=== PATIENT | female | born 1985 | race Caucasian/White ===

== ENCOUNTER 2016-08-19 07:44 | Inpatient (IN) | payer BC ==
--- NOTE | 2016-08-19 08:16 | OBHP ---
Datetime: 08/19/2016 08:12 IP Adm Impression: Postterm, intrauterine ; No Active Labor; Intact Membranes IP Admit Plan: Admit to unit; Initiate labor induction protocol Admit Comment, IP Provider: at 40.3weeks vcame with dec fm and irrg ctxs, no vb, lof. obhx primi pmh denies med pnv all nkda psh denies soch den ve closed/20/3 a/p at 40+weks dec fm for induction post date cadmit to l_d npo/ivf labs cont vianey and efm pain management poss cervidil Dr Escobedo aware Pelvic Type - PN: Adequate Extremities - PN: Normal Abdomen - PN: Normal Back - PN: Normal Breast - PN: Normal Lungs - PN: Normal Heart - PN: Normal Thyroid - PN: Normal Neurologic - PN: Normal HEENT - PN: Normal General - PN: Normal FHR - Baseline A Provider: 120 Contraction Comments Provider: occ Comments, ACOG Physical Exam: gravid,non tender ext no edema,no calf ten IP Hx Assessment: The History has been Reviewed and is Current EGA AdmitDate IP: 40.3 Vital Signs Provider: Reviewed; Within Normal Limits IP Chief Complaint: Decreased movement NICHD Variability Prov Fetus A: Moderate 6-25bpm NICHD Accel Fetus A IP Provider: 15X15 FHR Category Provider Fetus A: Category I Dilatation, Provider: 0 Effacement, Provider: 20 Station, Provider: -3 Genitourinary Exam: Normal DTRs - PN: Normal
[2016-08-19 08:19] VITALS: BMI 21.9
[2016-08-19] MEDS ORDERED: Nalbuphine 20 mg/ml Inj (1 ml) IVP PRN (08:30)
--- NOTE | 2016-08-19 08:46 | OBADHP ---
Datetime: 08/19/2016 08:12 Admit Comment, IP Provider: at 40.3weeks vcame with dec fm and irrg ctxs, no vb, lof. obhx primi pmh denies med pnv all nkda psh denies soch den ve closed/20/-3 a/p at 40+weks dec fm for induction post date cadmit to l_d npo/ivf labs cont vianey and efm pain management poss cervidil Dr Escobedo aware Pelvic Type - PN: Adequate Extremities - PN: Normal Abdomen - PN: Normal Back - PN: Normal Breast - PN: Not Done Lungs - PN: Normal Heart - PN: Normal Thyroid - PN: Not Done Neurologic - PN: Not Done HEENT - PN: Not Done General - PN: Normal FHR - Baseline A Provider: 120 Membranes, Provider: Intact Contraction Comments Provider: occ Comments, ACOG Physical Exam: gravid,non tender ext no edema,no calf ten IP Hx Assessment: The History has been Reviewed and is Current Vital Signs Provider: Reviewed; Within Normal Limits IP Chief Complaint: Decreased movement NICHD Variability Prov Fetus A: Moderate 6-25bpm NICHD Accel Fetus A IP Provider: 15X15 FHR Category Provider Fetus A: Category I Dilatation, Provider: 0 Effacement, Provider: 20 Station, Provider: -3 Genitourinary Exam: Normal DTRs - PN: Normal EGA AdmitDate IP: 40.3 IP Adm Impression: Postterm, intrauterine ; No Active Labor; Intact Membranes IP Admit Plan: Admit to unit; Initiate labor induction protocol
[2016-08-19 09:09] LABS: BASO # 0.1 K/uL (0.0-0.2); BASO % 0.6 % (0.0-2.0); EOS # 0.1 K/uL (0.0-0.7); EOS % 1.4 % (0.0-4.0); HEMATOCRIT 31.9 % (34.0-47.0); LYMPH # 2.8 K/uL (1.0-4.3); LYMPH % 30.8 % (20.0-40.0); MEAN CELL VOLUME 75.4 fL (81.0-99.0); MEAN CORPUSCULAR HEMOGLOBIN 24.3 pg (27.0-31.0); MEAN CORPUSCULAR HGB CONC 32.2 g/dL (33.0-37.0); MEAN PLATELET VOLUME 10.4 fL (7.2-11.7); MONO # 0.5 K/uL (0.0-0.8); MONO % 5.4 % (0.0-10.0); NRBC % 0.1 % (0.0-2.0); RED CELL DISTRIBUTION WIDTH 17.1 % (11.5-14.5); WHITE BLOOD COUNT 9.1 K/uL (4.8-10.8)
[2016-08-19 09:12] LABS: RBC URINE 2 /hpf (0-3); URINE BACTERIA OCC (<OCC); URINE BILIRUBIN NEGATIVE (NEGATIVE); URINE BLOOD NEGATIVE (NEGATIVE); URINE COLOR Amber (YELLOW); URINE GLUCOSE (UA) NORMAL (Normal); URINE KETONE NEGATIVE (NEGATIVE); URINE LEUKOCYTE ESTERASE 1+ Leu/uL (Negative); URINE PROTEIN 1+ mg/dL (NEGATIVE); URINE UROBILINOGEN NORMAL mg/dL (0.2-1.0); WBC URINE 11 /hpf (0-5)
[2016-08-19 09:21] LABS: CHLORIDE 101 mmol/L (98-107); SODIUM 136 mmol/L (132-148)
[2016-08-19 09:22] LABS: POTASSIUM 3.7 mmol/L (3.6-5.2)
[2016-08-19 09:24] LABS: ALKALINE PHOSPHATASE 177 U/L (38-126); ALT/SGPT 25 U/L (9-52); AST/SGOT 28 U/L (14-36); BILIRUBIN,TOTAL 0.4 mg/dL (0.2-1.3); BLOOD UREA NITROGEN 10 mg/dL (7-17); CARBON DIOXIDE 19 mmol/L (22-30); GFR AFRICAN-AMERICAN > 60; GLUCOSE,RANDOM 74 mg/dL (65-105)
[2016-08-19 09:25] LABS: CALCIUM 8.6 mg/dl (8.6-10.4)
[2016-08-19] MEDS ORDERED: Sodium Citrate/Citric Acid 15 ml Sol ONE (11:42)
[2016-08-19] MEDS ORDERED: Sodium Citrate/Citric Acid 15 ml Sol PO STA (11:51)
[2016-08-19] MEDS ORDERED: Nalbuphine 20 mg/ml Inj (1 ml) ONE (15:05)
[2016-08-19] MEDS ORDERED: Oxytocin 30 UNIT 500 ML IV ONE (18:04)
[2016-08-19] MEDS ORDERED: Oxytocin 30 UNIT 500 ML IV SCH (18:15)
[2016-08-19] MEDS ORDERED: Bupivacaine 0.125%/FentaNYL 200 ML EPI ONE (19:41)
--- NOTE | 2016-08-19 21:05 | OBPN ---
Datetime: 08/19/2016 21:00 IP Progress Impression: Normal progression of labor; Reassuring heart rate IP Informed Consent Obtain: Vaginal Delivery; Risks, Benefits and Alternatives Discussed IP Procedures: Sterile Vag Exam IP Progress Plan: Continue present management; Cervical Ripening; Anesthesia consult; Anticipate Vag inal Delivery Membranes, Provider: Intact FHR - Baseline A Provider: 140 Gestation - Est Wks by US: 40.0 Weight - Estimated: 3100 Presentation-Admit: Vertex FHR Category Provider Fetus A: Category I NICHD Variability Prov Fetus A: Moderate 6-25bpm Dilatation, Provider: 2 Effacement, Provider: 80 Station, Provider: -1 NICHD Decel Fetus A IP Provider: None Datetime: 08/19/2016 08:12 Contraction Comments Provider: occ Vital Signs Provider: Reviewed; Within Normal Limits NICHD Accel Fetus A IP Provider: 15X15
--- NOTE | 2016-08-19 23:17 | OBPN ---
Datetime: 08/19/2016 23:12 IP Progress Impression: Normal progression of labor; Reassuring heart rate IP Informed Consent Obtain: Vaginal Delivery; Risks, Benefits and Alternatives Discussed IP Procedures: Artificial ROM; Sterile Vag Exam IP Progress Plan: Continue present management; Induction; Anticipate Vaginal Delivery Membranes, Provider: Ruptured Amniotic Fluid Color, Provider: Clear FHR - Baseline A Provider: 150 Gestation - Est Wks by US: 40.0 Weight - Estimated: 3100 Presentation-Admit: Vertex IP Progress Note Comment: Good Progress of Labor. Reassuring Status. Anticipate . Vital Signs Provider: Reviewed; Within Normal Limits FHR Category Provider Fetus A: Category I NICHD Variability Prov Fetus A: Moderate 6-25bpm Dilatation, Provider: 3 Effacement, Provider: 100 Station, Provider: -1 NICHD Decel Fetus A IP Provider: None
--- NOTE | 2016-08-20 05:57 | OBPN ---
Datetime: 08/20/2016 05:53 IP Progress Impression: Normal progression of labor; Reassuring heart rate IP Informed Consent Obtain: Vaginal Delivery; Risks, Benefits and Alternatives Discussed IP Procedures: Sterile Vag Exam IP Progress Plan: Continue present management; Induction; Anticipate Vaginal Delivery Membranes, Provider: Ruptured Contraction Comments Provider: Q2min. FHR - Baseline A Provider: 140 Gestation - Est Wks by US: 40.0 Weight - Estimated: 3100 Presentation-Admit: Vertex IP Progress Note Comment: Active Labor. Reassuring Heart Tracing. Anticipate . FHR Category Provider Fetus A: Category I NICHD Variability Prov Fetus A: Moderate 6-25bpm Dilatation, Provider: 6 Effacement, Provider: 100 Station, Provider: 0 NICHD Decel Fetus A IP Provider: None
--- NOTE | 2016-08-20 09:01 | OBPN ---
Datetime: 08/20/2016 08:57 IP Progress Plan Other: Revaluate in one hour for progress of labor IP Progress Impression: Arrest of dilatation/descent; Reassuring heart rate IP Informed Consent Obtain: Vaginal Delivery; Risks, Benefits and Alternatives Discussed IP Procedures: Sterile Vag Exam IP Progress Plan: Continue present management; Induction Membranes, Provider: Intact Contraction Comments Provider: Q3min. FHR - Baseline A Provider: 150 Gestation - Est Wks by US: 40.0 Weight - Estimated: 3100 Presentation-Admit: Vertex IP Progress Note Comment: Protracted Labor. Revaluate in 1 hour. Vital Signs Provider: Reviewed; Within Normal Limits FHR Category Provider Fetus A: Category I NICHD Variability Prov Fetus A: Moderate 6-25bpm Dilatation, Provider: 8 Effacement, Provider: 100 Station, Provider: 0 NICHD Decel Fetus A IP Provider: None
[2016-08-20] MEDS ORDERED: Dextrose 5%/Lactated Ringer's 1,000 ML IV SCH (10:30)
[2016-08-20] MEDS ORDERED: Sodium Citrate/Citric Acid 15 ml Sol ONE (12:53)
[2016-08-20] MEDS ORDERED: ceFAZolin IV 2 gm in Dextrose 50 ML IVPB ONE ×2 (12:58→14:00)
[2016-08-20] MEDS ORDERED: Morphine 1 mg/ml preservative-free Inj(Duramorph) ONE (13:02)
[2016-08-20] MEDS ORDERED: ePHEDrine 50 mg/ml Inj ONE ×2 (13:02→13:39)
[2016-08-20] MEDS ORDERED: Sodium Citrate/Citric Acid 15 ml Sol PO ONE (13:04)
--- NOTE | 2016-08-20 14:37 | OBDS ---
DELIVERY PERSONNEL Delivery Doctor: Johnathan Escobedo MD Scrub Nurse: Maren Park Otolaryngology Surgeon: Mikaela Leslie RN Anesthesiologist: Resident: Dr.Jessica Collins MATERNAL INFORMATION Delivery Anesthesia: Epidural; Spinal Medications in Delivery: Pitocin 20units IV Estimated Blood Loss (ml): 600 Placenta Cultured: No Maternal Complications: None RN Comments: Liveborn Baby Boy. 9-9 Provider Comments: Primary LTC/S with delivery of viadble boy, 's /9 LABOR SUMMARY EDC: 08/16/2016 00:00 No. Babies in Womb: 1 Attempted: No Labor Anesthesia: Epidural LABOR INFORMATION Reason for Induction: Other Onset of Labor: 08/19/2016 20:08 Complete Dilatation: 08/20/2016 12:24 Cervical Ripening Agents: Cytotec @ (Annotations: 50 mcg po) Oxytocin: Augmentation Group B Beta Strep: Negative Antibiotics # of Doses: 1 Antibiotics Time of Last Dose: Ancef 2gm IV @1314 Steroids Given: None Reason Steroids Not Administered: Not Applicable MEMBRANES Membranes Rupture Method: Artificial Rupture of Membranes: 08/19/2016 23:08 Length of Rupture (hrs): 14.55 Amniotic Fluid Color: Clear Amniotic Fluid Amount: Moderate Amniotic Fluid Odor: Normal STAGES OF LABOR Stage 1 hrs: 16 Stage 1 min: 16 Stage 2 hrs: 1 Stage 2 min: 17 Stage 3 hrs: 0 Stage 3 min: 1 Total Time in Labor hrs: 17 Total Time in Labor min: 34 CSECTION DELIVERY Primary Indication: Failure to Progress CSection Urgency: Elective CSection Incidence: Primary Labor: Labor Elective: Nonelective CSection Incision: Lower Uterine Transverse BABY A INFORMATION Infant Delivery Date/Time: 08/20/2016 13:41 Method of Delivery: Born in Route : No : N/A Forceps: N/A Vacuum Extraction: N/A Shoulder Dystocia : No SHOULDER DYSTOCIA BABY A Infant Delivery Date/Time: 08/20/2016 13:41 PRESENTATION/POSITION BABY A Presentation: Cephalic Cephalic Presentation: Vertex Vertex Position: Left Occipital Anterior Breech Presentation: N/A PLACENTA INFORMATION BABY A Placenta Delivery Time : 08/20/2016 13:42 Placenta Method of Delivery: Manual Removal Placenta Status: Delivered SCORES BABY A Heart Rate 1 min: >100 bpm Resp Effort 1 min: Good Cry Reflex Irritability 1 min: Cough or Sneeze or Pulls Away Muscle Tone 1 min: Active Motion Color 1 min: Body [place], Extremities Blue Resuscitation Effort 1 min: N/A SCORE 1 MIN: 9 Heart Rate 5 min: >100 bpm Resp Effort 5 min: Good Cry Reflex Irritability 5 min: Cough or Sneeze or Pulls Away Muscle Tone 5 min: Active Motion Color 5 min: Body [place], Extremities Blue Resuscitation Effort 5 min: N/A SCORE 5 MIN: 9 INFANT INFORMATION BABY A Gestational Age at Delivery: 40.4 Gestational Status: Term Outcome : Liveborn Condition : Stable Infant Sex: Male IDENTIFICATION/MEDS BABY A ID Band Number: [id number] ID Band Location: Left Leg; Left Arm Sensor Applied: Yes Sensor Number: [id number] Sensor Location : Cord Clamp Vitamin K Given : Not Given Erythromycin Given: Not Given WEIGHT/LENGTH BABY A Birthweight (gms): 3345 Weight (lb): 7 Weight (oz): 6 Length Inches: 20.00 Length cms: 50.8 CORD INFORMATION BABY A No. Cord Vessels: 3 Nuchal Cord : Around Neck x1, Loose Cord Blood Taken: Yes Infant Suction: Mouth; Nose ASSESSMENT BABY A Complications: None Physical Findings at Delivery: Within Normal Limits Infant Respirations: Appears Normal Paper Twister Tender/ALS Called : No Infant Care By: Transferred To: Nursery
--- NOTE | 2016-08-20 17:07 | OP ---
PROCEDURE DATE: 08/20/2016 PREOPERATIVE DIAGNOSES: A 40-week gestation, arrest of descent in second stage of labor, POSTOPERATIVE DIAGNOSES: A 40-week gestation, arrest of descent in second stage of labor: PROCEDURE: Primary low transverse section. SURGEON: Dr. Isiah Escobedo. PILE DRIVING NOZZLEMAN: Dr. Snider and resident, Dr. Kristyn Collins. Both needed for retraction and assistance with delivery of baby. ANESTHESIA: Spinal given by Dr. Kilgore. FINDINGS: A viable boy delivered at 1341. scores were 9 at 1 minute and 9 at 5 minutes. The weight was 3345 grams. The ovaries, fallopian tubes , and uterus were all normal. DESCRIPTION OF PROCEDURE: Under adequate spinal anesthesia, the abdomen was prepped and draped in the usual sterile fashion. A Pfannenstiel skin incision was made with a scalpel and carried through the subcutaneous tissues to the fascia. The fascia was divided transversely and dissected off the underlying rectus muscle. The rectus muscle was in the midline bluntly. The parietal peritoneum was elevated with Annemarie clamps and entered sharply with Metzenbaum scissors. The bladder was retracted using the Acton retractor. The lower segment was then incised with a scalpel and extended bluntly with the fingers. The fetus was delivered cephalic. There was a loose nuchal cord which was reduced prior to delivery of the shoulders. The cord was doubly clamped, transected, and the baby handed over to the crozer operator in attendance. The placenta was manually removed. The uterus was then delivered into the incision. The uterine incision was grasped with T clamps for hemostasis. The uterine incision was then approximated in 2 layers with 0 Vicryl suture. Hemostasis was achieved. The abdomen was then irrigated with saline. The uterus was returned into the abdominal cavity. Again, hemostasis was noted. The parietal peritoneum was approximated with 0 chromic catgut. The rectus muscle was approximated with 0 chromic catgut in the midline. The fascia was approximated with 0 Vicryl suture in a continuous fashion. The subcutaneous tissues were approximated with 2-0 plain catgut. The skin was closed using 4-0 Vicryl subcuticular suture. The estimated blood loss was about 600 mL. Fluids received were about 1500 mL crystalloid. The urine output was 300 mL, slightly blood tinged. There was no specimen to pathology. The patient was transferred from the operating room to the recovery room in good condition. Isiah Escobedo MD cc: [id number] TT: 08/20/2016 17:06:21 tn [email or web address]
[2016-08-21] MEDS ORDERED: Oxycodone/Acetaminophen 5/325 mg Tab PO PRN
[2016-08-21 00:48] VITALS: RESP 20
[2016-08-21] MEDS: Lactated Ringer's 1,000 ML IV SCH ×2 (04:04→04:07)
[2016-08-21 07:51] LABS: HEMATOCRIT 24.2 % (34.0-47.0)
[2016-08-21] MEDS: Oxycodone/Acetaminophen 5/325 mg Tab PO PRN ×2 (15:43→23:33)
--- NOTE | 2016-08-21 19:11 | OBPPN ---
Datetime: 08/21/2016 06:47 PP Pain Prov: Within normal limits PP Pain Prov comment: Complains of incisional pain, desires to go hpme tomorrow. PP Nausea Prov: Denies PP Flatus Prov: No PP BM Prov: No PP Heart Prov: Normal PP Lungs Prov: Normal PP Abdomen/Uterus Prov: Normal PP Lochia Prov: Normal PP CVA Tenderness Prov: Normal PP Extremities Prov: Normal PP C/S Incision Prov: Normal PP Progress Prov: Normal PP Comments Phys Exam Prov: Abdomen: soft, appropriate incisional tenderness. Good bowel sounds. Inc ision C/D/I PP Impression Prov: Normal progression PP Plan Prov: Continue present management PP Progress Note Prov: S-patient reports discomfort especially when she gets out of bed.Tolerating c lears.Denies nausea, vomiting, hedacahe, chest pain, shortness of breath O-VSS afebrile Fundus firm and below umbilcius Incision clean dry and intact Extremities no calf tenderness A/P Patient s/p primary csection POD 1 doing well -continue routine post op care -encourage ambulation and po fluid intake Vital Signs Provider PP: Reviewed; Within Normal Limits
[2016-08-22 00:21] VITALS: BP 140/91; PULSE 109; TEMP 97; O2SAT 98
[2016-08-22] MEDS ORDERED: Influenza Virus Vaccine 45 mcg/0.5 ml Syr IM ONE (18:15)
== END 2016-08-22 19:00 | disposition home or self-care (01) | DRG 766 ==
LOC: C.EROB 07:44 → C.4D 08:18 → C.4M 08-20 16:45
PROVIDERS: ADMIT Obstetrics & Gynecology; ATTEND Obstetrics & Gynecology
PROC: 10D00Z1 Extraction of Products of Conception, Low, Open Approach (ICD-10-PCS; principal; 2016-08-20)
DX: O32.4XX0 Maternal care for high head at term, not applicable or unspecified (principal); O48.0 Post-term pregnancy; O62.1 Secondary uterine inertia; O69.81X0 Labor and delivery complicated by cord around neck, without compression, not applicable or unspecified; Z3A.40 40 weeks gestation of pregnancy; Z37.0 Single live birth

== ENCOUNTER 2018-06-12 06:10 | Inpatient (IN) | payer BC ==
[2018-06-12] MEDS ORDERED: Triamcinolone Acetonide 40 mg/mL Inj IAA ONE (07:06)
[2018-06-12] MEDS ORDERED: Sodium Citrate/Citric Acid 15 ml Sol PO STA (07:07)
[2018-06-12] MEDS ORDERED: cefOXitin IV 2 gm in Dextrose 2 GM/50 ML BAG IVPB ONE (07:08)
[2018-06-12] MEDS ORDERED: Oxytocin 20 units in LR 2,000 ML IV ONE (07:09)
[2018-06-12] MEDS ORDERED: Sodium Citrate/Citric Acid 15 ml Sol ONE (07:10)
--- NOTE | 2018-06-12 07:13 | OBHP ---
Datetime: 06/12/2018 07:07 IP Adm Impression: Term, intrauterine IP Chief Complaint Other: abdominal pain IP Admit Plan: Admit to unit; Initiate Section protocol Admit Comment, IP Provider: at v38.8weks with gdma2 c/o ctxs started in the night,no lof,no vb, +fm obhjx 1 c/s pmh gdma2 med pnv all nkda poh c/s soch de ve /-2 a/p at 38+weks gdma2/abdominal pain admit to l_d npo/ivf labs skin abxs anthesia aware informed consemt r/a/b disc Pelvic Type - PN: Adequate Extremities - PN: Normal Abdomen - PN: Normal Back - PN: Normal Breast - PN: Normal Lungs - PN: Normal Heart - PN: Normal Thyroid - PN: Normal Neurologic - PN: Normal HEENT - PN: Normal General - PN: Normal FHR - Baseline A Provider: 130 Contraction Comments Provider: irrg IP Hx Assessment: The History has been Reviewed and is Current EGA AdmitDate IP: 38.6 Vital Signs Provider: Reviewed; Within Normal Limits IP Chief Complaint: Uterine contractions NICHD Variability Prov Fetus A: Moderate 6-25bpm NICHD Accel Fetus A IP Provider: 15X15 FHR Category Provider Fetus A: Category I NICHD Decel Fetus A IP Provider: None Dilatation, Provider: 2 Effacement, Provider: 60 Station, Provider: -2 Genitourinary Exam: Normal DTRs - PN: Normal
[2018-06-12 07:14] LABS: BASO # 0.1 K/uL (0.0-0.2); BASO % 0.7 % (0.0-2.0); EOS # 0.1 K/uL (0.0-0.7); EOS % 1.6 % (0.0-4.0); HEMOGLOBIN 9.7 g/dL (11.0-16.0); LYMPH # 2.4 K/uL (1.0-4.3); LYMPH % 33.6 % (20.0-40.0); MEAN CORPUSCULAR HEMOGLOBIN 24.3 pg (27.0-31.0); MEAN CORPUSCULAR HGB CONC 32.4 g/dL (33.0-37.0); MEAN PLATELET VOLUME 10.6 fL (7.2-11.7); MONO # 0.3 K/uL (0.0-0.8); MONO % 4.6 % (0.0-10.0); NEUT # 4.3 K/uL (1.8-7.0); NEUT % 59.5 % (50.0-75.0); RBC 3.98 Mil/uL (3.80-5.20); RED CELL DISTRIBUTION WIDTH 18.4 % (11.5-14.5); WHITE BLOOD COUNT 7.2 K/uL (4.8-10.8)
[2018-06-12 07:29] LABS: ALB/GLOB RATIO 1.1 (1.0-2.1); ALBUMIN 3.8 g/dL (3.5-5.0); ALT/SGPT 53 U/L (9-52); AST/SGOT 45 U/L (14-36); BLOOD UREA NITROGEN 11 mg/dL (7-17); CALCIUM 8.3 mg/dl (8.6-10.4); GFR NON-AFRICAN AMERICAN > 60
[2018-06-12] MEDS: cefOXitin IV 2 gm in Dextrose 2 GM/50 ML BAG IVPB SCH ×2 (07:30→18:28)
[2018-06-12] MEDS ORDERED: Morphine 1 mg/ml preservative-free Inj(Duramorph) ONE (07:41)
[2018-06-12] MEDS ORDERED: Lactated Ringer's 1,000 ML IV ONE (07:41)
[2018-06-12 07:45] LABS: SQUAMOUS EPITHIAL 7 /hpf (0-5); URINE BACTERIA RARE (<OCC); URINE BILIRUBIN NEGATIVE (NEGATIVE); URINE BLOOD NEGATIVE (NEGATIVE); URINE CLARITY Clear (Clear); URINE COLOR Yellow (YELLOW); URINE GLUCOSE (UA) NORMAL (Normal); URINE LEUKOCYTE ESTERASE NEG Leu/uL (Negative); URINE PROTEIN NEGATIVE (NEGATIVE); URINE UROBILINOGEN NORMAL mg/dL (0.2-1.0)
[2018-06-12] MEDS ORDERED: Bupivacaine HCl 15 mg/2 ml Spinal Inj ONE (07:45)
[2018-06-12 08:05] LABS: HEPATITIS B SURFACE AG Negative (NEGATIVE)
[2018-06-12] MEDS ORDERED: Oxytocin 10 Units/ml Inj ONE ×2 (08:20→08:22)
[2018-06-12] MEDS ORDERED: Midazolam 2 MG/2 ML VIAL ONE (08:36)
--- NOTE | 2018-06-12 08:54 | OBDS ---
DELIVERY PERSONNEL Delivery Doctor: Brittany Antonio MD Scrub Nurse: Dianne Rachel OBT Vehicle Cost Engineer: Sparkle Westfall RN Anesthesiologist: Lori MATERNAL INFORMATION Delivery Anesthesia: Spinal Estimated Blood Loss (ml): 700 Placenta Cultured: No Provider Comments: dr antonio baby deliverd in [place]. end metrium clean 9/9 no com cord gas LABOR SUMMARY EDC: 06/20/2018 00:00 No. Babies in Womb: 1 Attempted: No Labor Anesthesia: None LABOR INFORMATION Reason for Induction: Not Applicable Steroids Given: None Reason Steroids Not Administered: Not Applicable MEMBRANES Membranes Rupture Method: Artificial STAGES OF LABOR Stage 3 hrs: 0 Stage 3 min: 1 CSECTION DELIVERY Primary Indication: Repeat Elective Other Primary Indication: labor CSection Urgency: Non Elective CSection Incidence: Repeat Labor: Labor Elective: Nonelective CSection Incision: Lower Uterine Transverse Other Sterilization Procedure: don.salphingectomy BABY A INFORMATION Infant Delivery Date/Time: 06/12/2018 08:14 Method of Delivery: Born in Route : No : N/A Forceps: N/A Vacuum Extraction: N/A Shoulder Dystocia : No SHOULDER DYSTOCIA BABY A Infant Delivery Date/Time: 06/12/2018 08:14 PRESENTATION/POSITION BABY A Presentation: Cephalic Cephalic Presentation: Vertex Vertex Position: Right Occipital Anterior PLACENTA INFORMATION BABY A Placenta Delivery Time : 06/12/2018 08:15 Placenta Method of Delivery: Manual Removal Placenta Status: Delivered SCORES BABY A Heart Rate 1 min: >100 bpm Resp Effort 1 min: Good Cry Reflex Irritability 1 min: Cough or Sneeze or Pulls Away Muscle Tone 1 min: Active Motion Color 1 min: Body [place], Extremities Blue SCORE 1 MIN: 9 Heart Rate 5 min: >100 bpm Resp Effort 5 min: Good Cry Reflex Irritability 5 min: Cough or Sneeze or Pulls Away Muscle Tone 5 min: Active Motion Color 5 min: Body [place], Extremities Blue SCORE 5 MIN: 9 INFANT INFORMATION BABY A Gestational Age at Delivery: 38.6 Gestational Status: Term Outcome : Liveborn Condition : Stable Sex: Female IDENTIFICATION/MEDS BABY A ID Band Number: [id number] Sensor Number: [id number] WEIGHT/LENGTH BABY A Infant Birthweight (gms): 2910 Weight (lb): 6 Weight (oz): 7 Infant Length Inches: 18.50 Infant Length cms: 47.0 CORD INFORMATION BABY A No. Cord Vessels: 3 Nuchal Cord Other: body cord True Knot: cord arround in body Cord Blood Taken: Yes Suction: Mouth; Nose ASSESSMENT BABY A Infant Complications: None Physical Findings at Delivery: Within Normal Limits Infant Respirations: Appears Normal Sign Manufacturer/ALS Called : Yes Infant Care By: Dr Polanco Transferred To: Remains with Mother
[2018-06-12] MEDS ORDERED: HYDROmorphone 0.5 mg/0.5 ml ISec IVP PRN (09:06)
[2018-06-12] MEDS ORDERED: Dextrose 5%/Lactated Ringer's 1,000 ML IV SCH (09:15)
[2018-06-12] MEDS: Prenatal Multivit/Folic Acid/Iron Tab PO SCH (18:29)
[2018-06-13] MEDS: cefOXitin IV 2 gm in Dextrose 2 GM/50 ML BAG IVPB SCH ×2 (01:00→08:58)
[2018-06-13 07:40] LABS: HEMOGLOBIN 8.6 g/dL (11.0-16.0); MEAN CELL VOLUME 75.7 fL (81.0-99.0); MEAN CORPUSCULAR HEMOGLOBIN 24.2 pg (27.0-31.0); MEAN PLATELET VOLUME 10.3 fL (7.2-11.7); RBC 3.55 Mil/uL (3.80-5.20); RED CELL DISTRIBUTION WIDTH 18.1 % (11.5-14.5)
[2018-06-13 08:01] LABS: WHITE BLOOD COUNT 10.9 K/uL (4.8-10.8)
[2018-06-13 08:30] VITALS: RESP 18
[2018-06-13] MEDS ORDERED: Bisacodyl 5mg EC Tab PO ONE (08:55)
[2018-06-13] MEDS ORDERED: cefOXitin IV 2 gm in Dextrose 2 GM/50 ML BAG IVPB ONE (09:00)
[2018-06-13] MEDS: Prenatal Multivit/Folic Acid/Iron Tab PO SCH (09:01)
--- NOTE | 2018-06-13 10:59 | OBPPN ---
Datetime: 06/13/2018 10:57 PP Pain Prov: Within normal limits PP Nausea Prov: Denies PP Flatus Prov: Yes PP Abdomen/Uterus Prov: Normal PP Lochia Prov: Normal PP C/S Incision Prov: Normal PP Impression Prov: Normal progression PP Plan Prov: Continue present management PP Progress Note Prov: pt was examined at bed side, pin undeer c ontrol,no n/vmtolerting deit,voidin g,min lochia, wauriing to void pln cbccont post op care encourage am cont post op care Vital Signs Provider PP: Reviewed; Within Normal Limits
[2018-06-13] MEDS ORDERED: Tdap Vaccine 0.5 ml Vial (10-64 yrs) IM ONE (11:09)
[2018-06-13] MEDS: Oxycodone/Acetaminophen 5/325 mg Tab PO PRN ×4 (11:24→21:35)
[2018-06-14] MEDS: Oxycodone/Acetaminophen 5/325 mg Tab PO PRN ×2 (02:07→07:07)
--- NOTE | 2018-06-14 07:01 | OBPPN ---
Datetime: 06/14/2018 06:55 PP Pain Prov: Within normal limits PP Nausea Prov: Denies PP Flatus Prov: Yes PP BM Prov: Yes PP Breasts Prov: Not Done PP Heart Prov: Normal PP Lungs Prov: Normal PP Abdomen/Uterus Prov: Normal PP Lochia Prov: Normal PP Vulva/Perineum Prov: Normal PP CVA Tenderness Prov: Normal PP Extremities Prov: Normal PP C/S Incision Prov: Normal PP Progress Prov: Abnormal PP Comments Phys Exam Prov: Incision clean, dry and intact Fundus firm, below umbilicus and non-tender PP Impression Prov: Normal progression PP Plan Prov: consult PP Progress Note Prov: Pt seen and examined per Dr. Antonio's request POD # 2 S/P Repeat C.S Stable and Satisfactory condition and recovery difficulties and reassured Will get service loss control consultant help Advance care Anticipate D/C home in AM IP PP Procedures: None Vital Signs Provider PP: Reviewed
[2018-06-14 08:09] LABS: BASO # 0.1 K/uL (0.0-0.2); BASO % 0.5 % (0.0-2.0); EOS # 0.1 K/uL (0.0-0.7); HEMOGLOBIN 8.6 g/dL (11.0-16.0); LYMPH # 2.7 K/uL (1.0-4.3); LYMPH % 19.2 % (20.0-40.0); MEAN CELL VOLUME 76.3 fL (81.0-99.0); MEAN CORPUSCULAR HGB CONC 31.5 g/dL (33.0-37.0); MEAN PLATELET VOLUME 10.1 fL (7.2-11.7); MONO # 0.7 K/uL (0.0-0.8); MONO % 5.2 % (0.0-10.0); NEUT # 10.3 K/uL (1.8-7.0); NEUT % 74.1 % (50.0-75.0); RBC 3.57 Mil/uL (3.80-5.20); RED CELL DISTRIBUTION WIDTH 18.6 % (11.5-14.5); WHITE BLOOD COUNT 13.9 K/uL (4.8-10.8)
[2018-06-14 09:39] VITALS: BP 101/68; PULSE 74; TEMP 98.9; O2SAT 98
[2018-06-14] MEDS: Prenatal Multivit/Folic Acid/Iron Tab PO SCH (10:36)
[2018-06-14] MEDS ORDERED: Tdap Vaccine 0.5 ml Vial (10-64 yrs) IM ONE (16:00)
== END 2018-06-14 16:26 | disposition home or self-care (01) | DRG 785 ==
LOC: C.EROB 06:10 → C.4D 06:30 → C.4M 13:24
PROVIDERS: ADMIT Obstetrics & Gynecology; ATTEND Obstetrics & Gynecology
PROC: 10D00Z1 Extraction of Products of Conception, Low, Open Approach (ICD-10-PCS; principal; 2018-06-12)
PROC: 0UL70ZZ Occlusion of Bilateral Fallopian Tubes, Open Approach (ICD-10-PCS; 2018-06-12)
DX: O24.429 Gestational diabetes mellitus in childbirth, unspecified control (principal); O69.81X0 Labor and delivery complicated by cord around neck, without compression, not applicable or unspecified; Z3A.38 38 weeks gestation of pregnancy; Z30.2 Encounter for sterilization; Z37.0 Single live birth